=== PATIENT | male | born 1965 | race Caucasian/White ===

== ENCOUNTER 2020-08-03 02:47 | Emergency (ER) | payer OTHER ==
[2020-08-03] MEDS ORDERED: NORCO 5-325 TA1 EACH PO (05:10)
[2020-08-03] MEDS ORDERED: CYCLOBENZAPRINE10 MG PO (05:10)
== END 2020-08-03 05:27 | disposition home or self-care (01) ==
LOC: FER 02:47
DX: M54.42 Lumbago with sciatica, left side (principal)
CPT/HCPCS: J1100; J1170; J1885; J2800; J7050

== ENCOUNTER 2021-08-01 02:17 | Emergency (ER) | payer OTHER ==
[~2021-08-01 02:17] MED LIST: CYCLOBENZAPRINE10 MG PO; NORCO 5-325 TA1 EACH PO
[2021-08-01 02:42] LABS: BASOPHIL 0.4 % (0-2); EOSINOPHIL 4.9 % (0-5); HCT 44.4 % (42.0-52.0); LYMPHOCYTE 37.5 % (15-48); MCH 30.2 pg (25.0-31.0); MCHC 33.8 g/dL (32.0-36.0); MCV 89.5 fL (78.0-100.0); MONOCYTE 9.9 % (0-12); MPV 10.1 fL (6.0-9.5); NEUTROPHIL 46.7 % (41-80); NRBC 0; PLT 260 K/uL (150-400); RBC 4.96 M/uL (4.70-6.00); RDW 13.9 % (11.5-14.0); WBC 8.1 K/uL (4.0-10.5)
[2021-08-01 02:58] LABS: ALBUMIN 4.1 g/dL (3.4-5.0); BILIRUBIN - TOTAL 0.8 mg/dL (0.2-1.0); BUN/CREAT RATIO (CALC) 11.4 RATIO; CREATININE 0.88 mg/dL (0.67-1.17); GLOBULIN (CALCULATION) 3.6 g/dL; POTASSIUM 3.8 mmol/L (3.5-5.1); TOTAL PROTEIN 7.7 g/dL (6.4-8.2)
[2021-08-01] MEDS ORDERED: ONDANSETRON ODT4 MG PO (04:01)
== END 2021-08-01 04:15 | disposition home or self-care (01) ==
LOC: FER 02:17
PROVIDERS: Emergency Medicine
DX: A08.4 Viral intestinal infection, unspecified (principal); Z28.310 Unvaccinated for COVID-19
CPT/HCPCS: 36415; 80053; 83690; 84484; 85025; J1885; J2405; J7030